=== PATIENT | female | born 1975 | race Hispanic/Latino ===

== ENCOUNTER 2017-12-27 05:53 | Inpatient (IN) | payer BC ==
[2017-12-12 14:13] VITALS: BMI 34.0
[2017-12-27] MEDS ORDERED: Bupivacaine 0.5% Inj(30mL) ONE (07:26)
[2017-12-27] MEDS ORDERED: Silver Nitrate Topical - Stick ONE (07:47)
[2017-12-27] MEDS ORDERED: Midazolam 2 MG/2 ML VIAL ONE (07:51)
[2017-12-27] MEDS ORDERED: Propofol 10 mg/ml Inj (20 ML) ONE (07:51)
[2017-12-27] MEDS ORDERED: ePHEDrine 50 mg/ml Inj ONE (07:52)
[2017-12-27] MEDS ORDERED: Rocuronium 10 mg/ml (5 ml) ONE ×3 (07:52→12:12)
[2017-12-27] MEDS ORDERED: Succinylcholine 200 mg/10 ml Inj IV ONE (07:52)
[2017-12-27] MEDS ORDERED: Lactated Ringer's 1,000 ML IV ONE ×3 (08:10→18:30)
[2017-12-27] MEDS ORDERED: Bupivacaine 0.5% 50 ML IJ ONE ×2 (08:30)
[2017-12-27] MEDS ORDERED: Vasopressin 20 Units/ml Inj ONE (09:08)
[2017-12-27] MEDS ORDERED: Vasopressin 20 Units/ml Inj IV ONE (09:15)
[2017-12-27] MEDS ORDERED: Neostigmine 1:1000 (1 mg/ml) Inj ONE ×2 (10:53→10:54)
[2017-12-27] MEDS ORDERED: Lactated Ringer's 500 ML IV ONE (11:30)
[2017-12-27] MEDS ORDERED: Methylene Blue 10 mg/mL(10ml) IV ONE (13:06)
[2017-12-27] MEDS ORDERED: Methylene Blue 10 mg/ml (1ml) Inj IV ONE (13:45)
[2017-12-27] MEDS ORDERED: Iohexol 240 200 ML ONE (14:20)
[2017-12-27] MEDS ORDERED: Sevoflurane - Inhalation Anesthetic Liq (250 ml) ONE (14:41)
[2017-12-27] MEDS ORDERED: Iohexol 240 200 ML IJ ONE (15:18)
[2017-12-27] MEDS ORDERED: HYDROmorphone 0.5 mg/0.5 ml ISec ONE (16:05)
[2017-12-27] MEDS: HYDROmorphone 0.5 mg/0.5 ml ISec IVP PRN ×4 (16:05→16:50)
--- NOTE | 2017-12-27 16:42 | RAD ---
PROCEDURE: Intraoperative Fluoroscopy. HISTORY: FLUOROSCOPY FINDINGS: Fluoroscopic assistance was provided for cystogram in retrograde study. Please refer to the operative report from DUANE Burr. Total fluoroscopic time (continuous mode) utilized during the procedure 57.5 (seconds). Total exam DLP: (mGy) 14.23
[2017-12-27] MEDS ORDERED: Lactated Ringer's 1,000 ML IV SCH (17:00)
[2017-12-27] MEDS ORDERED: Oxycodone/Acetaminophen 5/325 mg Tab PO PRN (17:01)
[2017-12-27] MEDS: ceFAZolin 2 GM in Sodium Chloride 0.9% 100 ML IVPB SCH (17:45)
[2017-12-27] MEDS ORDERED: Dexamethasone 4 mg/1 ml IVP PRN (18:49)
[2017-12-27 19:29] LABS: HEMOGLOBIN 8.8 g/dL (12.0-16.0); MEAN CELL VOLUME 70.3 fl (81.0-99.0); MEAN CORPUSCULAR HEMOGLOBIN 21.6 pg (27.0-31.0); MEAN CORPUSCULAR HGB CONC 30.7 g/dL (33.0-37.0); RBC 4.08 Mil/uL (3.80-5.20); RED CELL DISTRIBUTION WIDTH 16.4 % (11.5-14.5); WHITE BLOOD COUNT 17.8 K/uL (4.8-10.8)
[2017-12-27] MEDS: Lactated Ringer's 1,000 ML IV SCH (23:44)
[2017-12-27] MEDS: Phenol 1.4% Throat Spray MT PRN (23:49)
[2017-12-28] MEDS: ceFAZolin 2 GM in Sodium Chloride 0.9% 100 ML IVPB SCH ×2 (01:06→08:22)
[2017-12-28 05:55] LABS: HEMOGLOBIN 8.5 g/dL (12.0-16.0); MEAN CORPUSCULAR HEMOGLOBIN 21.9 pg (27.0-31.0); MEAN CORPUSCULAR HGB CONC 30.8 g/dL (33.0-37.0); RBC 3.88 Mil/uL (3.80-5.20); RED CELL DISTRIBUTION WIDTH 16.7 % (11.5-14.5); WHITE BLOOD COUNT 9.8 K/uL (4.8-10.8)
[2017-12-28] MEDS: Phenol 1.4% Throat Spray MT PRN (06:43)
[2017-12-28] MEDS: Lactated Ringer's 1,000 ML IV SCH ×2 (07:30→17:01)
--- NOTE | 2017-12-28 08:39 | OP ---
PROCEDURE DATE: 12/27/2017 PREOPERATIVE DIAGNOSES: Symptomatic fibroid uterus, menorrhagia, and anemia. POSTOPERATIVE DIAGNOSES: Symptomatic fibroid uterus, menorrhagia, anemia, pending pathology. PROCEDURE: Robotic-assisted hysterectomy, bilateral salpingectomy, bladder repair, cystoscopy, cystogram, and lysis of adhesions. SURGEON: Baldemar Nathan MD PERSONNEL INTERVIEWER: Dior Bowers MD CONSULTING SURGEONS: Karan Hansen MD for Urology and for General Surgery, Pk Zavala MD and [place] MD FLUID REPLACEMENT: Lactated Ringer's. DRAINS: Langston to gravity and Steve drain. ESTIMATED BLOOD LOSS: 200 mL. COMPLICATIONS: Bladder injury. INDICATION FOR SURGERY: A 42-year-old with severe menorrhagia secondary to symptomatic fibroid uterus. DESCRIPTION OF PROCEDURE: After informed consent was obtained and signed, the patient was brought to the operating room and placed in the supine position. Once general anesthesia was successfully induced, the patient was placed in a dorsal lithotomy position, prepped and draped in usual sterile fashion. A bivalve speculum was placed intravaginally and the cervix was grasped with single-tooth tenaculum, it was then tented forward and the cervix was then dilated in a graduated fashion. The Vcare manipulator was then deployed through the internal os and insufflated into place and then all other equipments were removed the VCare manipulator in place. Once this was completed, attention was turned to the pre-prepped abdominal area and which 2 fingerbreadths above the umbilicus, an 8-mm skin incision was made horizontally. A Veress needle was then placed and abdominal cavity was insufflated with CO2 distention medium under direct using a pressure gauge of 50 mmHg. Once this was completed, abdominal cavity was properly insufflated. The Veress needle was removed and the robotic 8-mm trocar was then placed intra-abdominally and confirmed by robotic camera and abdominal cavity was surveyed. The specimen was identified and then attention turned to placement of the remaining 4 ports, two ports on the patient's lateral left and two ports on the patient's lateral right, please note Marcaine solution was injected prior to all incisions including the Veress needle under direct visualization and 8-mm trocar was placed on the patient's left side under direct visualization of the camera. On the patient's right side, a 5-mm port as well as 8-mm port was placed under direct visualization. Once all trocars were in place, the robot was then docked. After the robot was docked, the instruments were then placed under direct visualization using Prograf monopolar on the left lateral and using accessory port and PK cautery on the patient's right. At this point in time, the was surveyed. There was anterior adhesion to omental adhesions, blocking the uterus. Pelvis was robotically reduced. Once this intraabdominal adhesion was relieved using monopolar gina and PK cauterization safely. Complete visualization of the speculum was then viewed. At this point in time, a Dilaudid and dose of Pitocin dose was then injected into the uterus. Once completed, a needle was retracted and removed, blanching of the uterus was noted at this time. Then attention turned to the patient's round ligament, which was cauterized and transected bilaterally. Attention to IP ligament was noted and since the patient was remaining to maintain ovaries on both sides, the ovarian ligament was then cauterized and transected instead. This was done bilaterally, freeing the ovary from the uterus. On the patient's left side, there was some intraabdominal adhesions from the previous that was noted for using the PK and the monopolar gina, the broad ligament was then expanded upon and dissected from the left pelvic sidewall. Once this was freed, then the round ligament was then cauterized and transected completely and then the bladder flap was creating anteriorly. Once this was completed, attention turned to the patient's right, which there was a large posterolateral fibroid approximately 8 to 9 cm in size. Once the ovary was freed, the round ligament was then cauterized and transected and a bladder flap was then created anteriorly to connect to the bladder flap on the contralateral side. The bladder was then displaced distally using the PK cautery on sweep. On the patient's left side since it was more operable, we proceed by identifying the uterine cauterizing and transecting using monopolar gina. Anteriorly, the cuff was identified and then posteriorly the cuff as well was identified and the retroperitoneum was then entered and then displaced distally away from the cuff posteriorly, dropping down the peritoneum posterior and on the left lateral side. Once this was completed, I then proceeded with performing myomectomy. At this point in time, the Prograf was removed. The tenaculums were replaced and after linear incision was made on the posterior wall of the fibroid, the tenaculum was used to secure the fibroid in place using a monopolar gina and the PK suture. The large myoma was then dissected out. Once it was completely out, the myoma was then placed in the cul-de-sac area. Attention then turned to the myoma anterior, which was largest one and likewise incision was created linearly. Tenaculum was used to grasped the myoma using monopolar gina and the PK cautery, it was dissected out of and then dissected at the base. Then, the final myoma which was on the contralateral side of the fundus was then also linear incision grasped with tenaculums and dissected out. All 3 myomas was placed on the side, this decompressed the uterus tremendously. Skeletonization then was performed on the patient's right side to exposing the uterine arteries. Once expose using PK cautery, it was cauterized and monopolar gina was transected, this carried down to the cuff line and after cuff line, then using a monopolar gina, dissected down to over the cuff, once the clean cuff was exposed and circumferential incision was created excising the entire uterus. At this point in time, Dr. Bowers then removed the uterus vaginally and then at this point in time, each myoma was passed to Dr. Bowers. The largest myoma vaginally was debulked. All specimen was sent to pathology for analysis. The vaginal area was closed with moist laparotomy sponge and at this point in time, the ovaries were evaluated. The tubes were grasping using the PK and monopolar gina. The tubes were transected. Once completed, Dr. Bowers removed the sponge and tubes were then passed through were extracted vaginally. Moist laparotomy sponge was then replaced. At this point in time, the monopolar gina were removed and was deployed and at this point in time, the suture V-Loc 12-inch was also released into the abdominal cavity. The vaginal cuff was then closed in a running locking suture. Once the cuff was completely closed, the suture was transected and removed and Dr. Bowers then extracted the needle. Copious irrigation and once completed, we proceeded with a cystoscopy. Cystoscopy was then placed to the urethra. The bladder was insufflated with normal saline . Ureteral stent was placed on the patient's right side. Upon entering, we noted there was some blood-tinged urine in the bladder was in place to check for ureter integrity. ICD-9 was then injected. At this point in time, we noted that there was a leak identified at this point in time. The patient was noted to be stable. We called an intraoperative consult with Urology. General surgery was readily available, so general surgery papers with Dr. Portillo and Dr. Hills assisting. We were awaiting for Urology to present. We then proceeded with repeat cystoscopy evaluating the bladder and once the bladder was completely evaluated and the bladder opening was identified. At this point in time, the bladder was then repaired by Dr. Zavala using 3-0 Vicryl suture and interrupted suture with 2-layer closure. Dr. Portillo will dictate his repair. Once this repair was complete, Urology was present and urologist at this point in time checked the integrity of the ureters stent, injected radioactive dye into the cystogram to evaluate the ureter and the bladder as well. This was performed by Dr. Hansen. The repair appeared to be intact and ureter appeared to be intact as well. All equipment was removed and at this point in time, Steve drain was then deployed to one of the trocar port and secured into place with suture. All other ports were closed using 3-0 Monocryl and subcuticular stitch and Dermabond glue. The patient tolerated the procedure well. Sponge, needle, and equipment counts were correct x3. Please note that there was an extended time that we were in the operating room, but delay was secondary to just waiting for the intraoperative consults to arrive, but please note that the injury was identified intraoperatively on spot, it was repaired immediately and its integrity was confirmed. The patient went to recovery room in stable condition. All sponge, needle and equipment count were correct x3 and the patient went to recovery room with IV fluid running and will be started on PETROPHYSICIST for pain management. The patient will be encouraged to maintain the Langston for approximately 10 days, and if stable, the Steve drain will be removed in the next 2 to 3 days and prophylactic antibiotics will be initiated. Baldemar Nathan MD
--- NOTE | 2017-12-28 08:46 | OP ---
INTRAOPERATIVE CONSULTATION AND OPERATIVE NOTE DATE: 12/27/[address] Baldemar Nathan for right ureteral/bladder injury. Intraoperatively, status post robotic total hysterectomy without oophorectomy. Intraoperatively during the procedure, it was noted by additional robotic surgeons Dr. Pk Zavala and also Dr. [place] that there did not appear to be an injury to the ureter near the bladder. However, there was a small bladder injury measuring about 1 cm. This injury was repaired by Dr. Zavala robotically and I performed a right retrograde pyelogram with a right ureteral stent and a postoperative cystogram. Both appeared to be relatively normal with no evidence of any extravasation. 20 mL of contrast was injected via the indwelling open-ended ureteral stent and about 60 mL of contrast was injected via the Langston catheter for a right retrograde pyelogram and a cystogram. At the end of the procedure, a Steve drain was left indwelling with the Langston catheter. Langston balloon was inflated to 10 ml. The catheter will remain for about 10 days. The patient will also get postop antibiotics for about 10 days, which might include either Ceftin, Augmentin or Levaquin to be chosen by Dr. Nathan. The right ureteral open ended stent was removed. Karan Hansen MD MTDJeffrey
--- NOTE | 2017-12-28 10:30 | CP.PCM.PN ---
Subjective - Date & Time of Evaluation Date of Evaluation: 12/28/17 Time of Evaluation: 10:28 - Subjective Subjective: SURGERY NOTE FOR DR. JEFFRIES 42F seen and examined at bedside. Patient doing well, states pain is controlled , nausea has improved. Currently tolerating diet. Denies fever, chills. Ryan catheter in place. Objective - Vital Signs/Intake and Output Vital Signs (last 24 hours): Temp Pulse Resp BP Pulse Ox 99 F 88 20 128/84 98 12/28/17 07:54 12/28/17 07:54 12/28/17 07:54 12/28/17 07:54 12/28/17 07:54 Intake and Output: 12/28/17 12/28/17 06:59 18:59 Output Total 220 Balance -220 - Medications Medications: Current Medications Heparin Sodium (Porcine) (Heparin) 5,000 units SC Q12 CARL PRN Reason: Protocol Last Admin: 12/28/17 08:28 Dose: 5,000 units Lactated Ringer's (Lactated Ringer's) 1,000 mls @ 100 mls/hr IV .Q10H [facility] Last Admin: 12/27/17 23:44 Dose: 100 mls/hr Lactated Ringer's (Lactated Ringer's) 1,000 mls @ 0 mls/hr IV .Q0M CARL PRN Reason: Per Protocol Last Admin: 12/27/17 18:22 Dose: 1,000 mls Ketorolac Tromethamine (Toradol) 30 mg IVP Q6 PRN PRN Reason: Pain, moderate (4-7) Ondansetron HCl (Zofran Inj) 4 mg IVP ONCE PRN PRN Reason: Nausea/Vomiting Last Admin: 12/27/17 18:30 Dose: 4 mg Ondansetron HCl (Zofran Inj) 4 mg IVP Q6 PRN PRN Reason: Nausea/Vomiting Last Admin: 12/28/17 08:57 Dose: 4 mg Oxycodone/Acetaminophen (Percocet 5/325 Mg Tab) 1 tab PO Q4 PRN PRN Reason: Pain, moderate (4-7) Stop: 12/30/17 17:02 Phenol/Menthol (Phenaseptic 1.4% Throat [place]) 1 spry MT Q2 PRN PRN Reason: Sore Throat Last Admin: 12/28/17 06:43 Dose: 1 spr - Labs Labs: 12/28/17 04:20 - Constitutional Appears: Non-toxic, No Acute Distress - Respiratory Exam Respiratory Exam: Clear to Ausculation Bilateral, NORMAL BREATHING PATTERN - Cardiovascular Exam Cardiovascular Exam: REGULAR RHYTHM, +S1, +S2 - GI/Abdominal Exam GI & Abdominal Exam: Soft, Tenderness (appropriately). absent: Distended, Firm , Guarding, Rigid, Rebound Additional comments: allyson drain output - serosanguinous Incisions CDI - Exam Additional comments: ryan in place - 1250cc since OR. 75cc/hr - Extremities Exam Extremities Exam: absent: Pedal Edema, Tenderness - Neurological Exam Neurological Exam: Alert, Awake - Skin Skin Exam: Dry, Intact, Normal Color, Warm Assessment and Plan - Assessment and Plan (Free Text) Assessment: 42F s/p robotic hysterectomy, bilateral salpingoopherectomy, with bladder repair POD1 Plan: DC SOLUTIONS CONSULTANT Toradol for pain Advance diet as tolerated Keep ryan catheter in. Strict Is &Os Discussed with Dr. Lucas Shen, PGY2
--- NOTE | 2017-12-28 18:07 | CP.PCM.PN ---
Subjective - Date & Time of Evaluation Date of Evaluation: 12/28/17 Time of Evaluation: 18:04 - Subjective Subjective: Patient c/o nausea and vomiting x one episode also an adverse reaction to zofran Objective - Vital Signs/Intake and Output Vital Signs (last 24 hours): Temp Pulse Resp BP Pulse Ox 98.8 F 88 20 128/84 99 12/28/17 15:45 12/28/17 15:45 12/28/17 15:45 12/28/17 15:45 12/28/17 15:45 Intake and Output: 12/28/17 12/28/17 06:59 18:59 Output Total 220 Balance -220 - Medications Medications: Current Medications Heparin Sodium (Porcine) (Heparin) 5,000 units SC Q12 CARL PRN Reason: Protocol Last Admin: 12/28/17 08:28 Dose: 5,000 units Lactated Ringer's (Lactated Ringer's) 1,000 mls @ 100 mls/hr IV .Q10H [facility] Last Admin: 12/28/17 17:01 Dose: 100 mls/hr Lactated Ringer's (Lactated Ringer's) 1,000 mls @ 0 mls/hr IV .Q0M CARL PRN Reason: Per Protocol Last Admin: 12/27/17 18:22 Dose: 1,000 mls Ketorolac Tromethamine (Toradol) 30 mg IVP Q6 PRN PRN Reason: Pain, moderate (4-7) Last Admin: 12/28/17 13:05 Dose: 30 mg Ondansetron HCl (Zofran Inj) 4 mg IVP ONCE PRN PRN Reason: Nausea/Vomiting Last Admin: 12/27/17 18:30 Dose: 4 mg Ondansetron HCl (Zofran Inj) 4 mg IVP Q6 PRN PRN Reason: Nausea/Vomiting Last Admin: 12/28/17 08:57 Dose: 4 mg Oxycodone/Acetaminophen (Percocet 5/325 Mg Tab) 1 tab PO Q4 PRN PRN Reason: Pain, moderate (4-7) Stop: 12/30/17 17:02 Phenol/Menthol (Phenaseptic 1.4% Throat [place]) 1 spry MT Q2 PRN PRN Reason: Sore Throat Last Admin: 12/28/17 06:43 Dose: 1 spr - Labs Labs: 12/28/17 04:20 - Constitutional Appears: Well - Eye Exam Pupil Exam: NORMAL ACCOMODATION - Neck Exam Neck Exam: Normal Inspection - Respiratory Exam Respiratory Exam: NORMAL BREATHING PATTERN - Cardiovascular Exam Cardiovascular Exam: REGULAR RHYTHM - GI/Abdominal Exam GI & Abdominal Exam: Soft, Tenderness, Normal Bowel Sounds - Exam Exam: NORMAL INSPECTION External exam: NORMAL EXTERNAL EXAM Additional comments: scant vaginal bleeding Steve draine 40ml urine ryan clear urine noted - Extremities Exam Extremities Exam: Normal Inspection - Neurological Exam Neurological Exam: Alert, Awake, Oriented x3 - Skin Skin Exam: Normal Color Assessment and Plan - Assessment and Plan (Free Text) Assessment: s/p Robotic Assisted Hysterectomy bilateral salpingectomy w/ bladder rent repair stable continue current care advance diet as tolerated oob to chair ambulate with business assistant d/c CIRCULATION DIRECTOR start percocert and toradal prn
[2017-12-28] MEDS ORDERED: DiphenhydrAMINE 50 mg/ml Inj IVP PRN (18:22)
[2017-12-29] MEDS: Lactated Ringer's 1,000 ML IV SCH ×2 (00:22→13:45)
[2017-12-29 05:19] VITALS: O2SAT 99
[2017-12-29 07:27] LABS: ALBUMIN 3.1 g/dL (3.5-5.0); ALT/SGPT 26 U/L (9-52); AST/SGOT 42 U/L (14-36); BLOOD UREA NITROGEN 7 mg/dl (7-17); CALCIUM 8.3 mg/dL (8.4-10.2); GFR AFRICAN-AMERICAN > 60; GFR NON-AFRICAN AMERICAN > 60
--- NOTE | 2017-12-29 07:27 | CP.PCM.PN ---
Subjective - Date & Time of Evaluation Date of Evaluation: 12/29/17 Time of Evaluation: 07:24 - Subjective Subjective: General Surgery Note for Dr. Zavala Patient seen and examined at bedside. No acute event overnight. Patient states pain is still present but controlled. Denies fever/chills or nausea/vomiting. She is tolerating full liquid diet. Patient reports passing gas but no BM. Ryan catheter with 2800 cc of urine output over 24 hrs. Allyson drain with 180 cc of output over 24 hrs. Objective - Vital Signs/Intake and Output Vital Signs (last 24 hours): Temp Pulse Resp BP Pulse Ox 97.9 F 104 H 18 125/81 99 12/29/17 05:18 12/29/17 05:18 12/29/17 05:18 12/29/17 05:18 12/29/17 05:18 Intake and Output: 12/29/17 12/29/17 06:59 18:59 Intake Total 3040 Output Total 1380 Balance 1660 - Medications Medications: Current Medications Diphenhydramine HCl (Benadryl) 50 mg IVP Q6 PRN PRN Reason: Nausea/Vomiting Heparin Sodium (Porcine) (Heparin) 5,000 units SC Q12 CARL PRN Reason: Protocol Last Admin: 12/28/17 20:57 Dose: 5,000 units Lactated Ringer's (Lactated Ringer's) 1,000 mls @ 100 mls/hr IV .Q10H [facility] Last Admin: 12/29/17 00:22 Dose: 100 mls/hr Lactated Ringer's (Lactated Ringer's) 1,000 mls @ 0 mls/hr IV .Q0M CARL PRN Reason: Per Protocol Last Admin: 12/27/17 18:22 Dose: 1,000 mls Ketorolac Tromethamine (Toradol) 30 mg IVP Q6 PRN PRN Reason: Pain, moderate (4-7) Last Admin: 12/29/17 01:34 Dose: 30 mg Ondansetron HCl (Zofran Inj) 4 mg IVP ONCE PRN PRN Reason: Nausea/Vomiting Last Admin: 12/27/17 18:30 Dose: 4 mg Ondansetron HCl (Zofran Inj) 4 mg IVP Q6 PRN PRN Reason: Nausea/Vomiting Last Admin: 12/28/17 08:57 Dose: 4 mg Oxycodone/Acetaminophen (Percocet 5/325 Mg Tab) 1 tab PO Q4 PRN PRN Reason: Pain, moderate (4-7) Stop: 12/30/17 17:02 Phenol/Menthol (Phenaseptic 1.4% Throat [place]) 1 spry MT Q2 PRN PRN Reason: Sore Throat Last Admin: 12/28/17 06:43 Dose: 1 spr - Labs Labs: 12/28/17 04:20 - Constitutional Appears: No Acute Distress - Head Exam Head Exam: ATRAUMATIC, NORMOCEPHALIC - Eye Exam Eye Exam: EOMI, Normal appearance Pupil Exam: PERRL - ENT Exam ENT Exam: Mucous Membranes Moist - Respiratory Exam Respiratory Exam: NORMAL BREATHING PATTERN - Cardiovascular Exam Cardiovascular Exam: REGULAR RHYTHM - GI/Abdominal Exam GI & Abdominal Exam: Soft, Tenderness (mild, incisional). absent: Distended, Firm, Guarding, Rigid, Rebound Additional comments: surgical sites are clean, dry and intact allyson drain in place with serosanguinous output - Exam Additional comments: ryan catheter in play with yellow urine output (200 cc in bag) - Extremities Exam Extremities Exam: Normal Capillary Refill - Back Exam Back Exam: absent: CVA tenderness (L), CVA tenderness (R) - Neurological Exam Neurological Exam: Alert, Awake, Oriented x3 - Psychiatric Exam Psychiatric exam: Normal Affect, Normal Mood - Skin Skin Exam: Dry, Intact, Normal Color, Warm Assessment and Plan - Assessment and Plan (Free Text) Assessment: 42F s/p robotic hysterectomy, bilateral salpingoopherectomy, with bladder repair POD#2 Plan: -FLD, ADAT -Toradol for pain control -Strict I's & O's -Monitor bowel function -OOB/Ambulation/Incentive Spirometry -Further recommendations as per Dr. Lucas Hawley PGY1
[2017-12-29 07:37] LABS: HEMOGLOBIN 8.5 g/dL (12.0-16.0); MEAN CELL VOLUME 70.9 fl (81.0-99.0); MEAN CORPUSCULAR HEMOGLOBIN 21.7 pg (27.0-31.0); MEAN CORPUSCULAR HGB CONC 30.6 g/dL (33.0-37.0); RBC 3.9 Mil/uL (3.80-5.20); RED CELL DISTRIBUTION WIDTH 16.4 % (11.5-14.5); WHITE BLOOD COUNT 6.4 K/uL (4.8-10.8)
[2017-12-29 08:18] VITALS: RESP 20
--- NOTE | 2017-12-29 08:57 | CP.PCM.PN ---
Subjective - Date & Time of Evaluation Date of Evaluation: 12/29/17 Time of Evaluation: 08:55 - Subjective Subjective: Patient doing well and tolerating diet and pain well controlled without complaints Objective - Vital Signs/Intake and Output Vital Signs (last 24 hours): Temp Pulse Resp BP Pulse Ox 98.0 F 96 H 20 126/82 99 12/29/17 08:17 12/29/17 08:17 12/29/17 08:17 12/29/17 08:17 12/29/17 08:17 Intake and Output: 12/29/17 12/29/17 06:59 18:59 Intake Total 3040 Output Total 1380 Balance 1660 - Medications Medications: Current Medications Diphenhydramine HCl (Benadryl) 50 mg IVP Q6 PRN PRN Reason: Nausea/Vomiting Heparin Sodium (Porcine) (Heparin) 5,000 units SC Q12 CARL PRN Reason: Protocol Last Admin: 12/28/17 20:57 Dose: 5,000 units Lactated Ringer's (Lactated Ringer's) 1,000 mls @ 100 mls/hr IV .Q10H [facility] Last Admin: 12/29/17 00:22 Dose: 100 mls/hr Lactated Ringer's (Lactated Ringer's) 1,000 mls @ 0 mls/hr IV .Q0M CARL PRN Reason: Per Protocol Last Admin: 12/27/17 18:22 Dose: 1,000 mls Ketorolac Tromethamine (Toradol) 30 mg IVP Q6 PRN PRN Reason: Pain, moderate (4-7) Last Admin: 12/29/17 01:34 Dose: 30 mg Ondansetron HCl (Zofran Inj) 4 mg IVP ONCE PRN PRN Reason: Nausea/Vomiting Last Admin: 12/27/17 18:30 Dose: 4 mg Ondansetron HCl (Zofran Inj) 4 mg IVP Q6 PRN PRN Reason: Nausea/Vomiting Last Admin: 12/28/17 08:57 Dose: 4 mg Oxycodone/Acetaminophen (Percocet 5/325 Mg Tab) 1 tab PO Q4 PRN PRN Reason: Pain, moderate (4-7) Stop: 12/30/17 17:02 Phenol/Menthol (Phenaseptic 1.4% Throat [place]) 1 spry MT Q2 PRN PRN Reason: Sore Throat Last Admin: 12/28/17 06:43 Dose: 1 spr - Labs Labs: 12/29/17 05:30 12/29/17 06:00 - Respiratory Exam Respiratory Exam: NORMAL BREATHING PATTERN - Cardiovascular Exam Cardiovascular Exam: REGULAR RHYTHM - GI/Abdominal Exam GI & Abdominal Exam: Normal Bowel Sounds Assessment and Plan - Assessment and Plan (Free Text) Assessment: Status post neurotic assisted hysterectomy Cystotomy with repair Postoperative day #2 Patient doing well Discharge depending Prescriptions for Motrin and Percocet and Colace provided Langston catheter to remain in place for 1 week Follow-up the PMD
[2017-12-29 16:00] VITALS: BP 134/84; PULSE 114; TEMP 98.9
--- NOTE | 2018-01-01 13:18 | PCM.OP ---
Operative Report - Operative Report Date of Surgery/Procedure: 12/27/17 Time of Surgery/Procedure: 14:00 Surgeon: Dr. Pk Zavala [employer] Clerk: Dr. Otto, Dr. Bowers, Dr. Hills, Dr. Espinoza Anesthesia/Sedation: general/Dr. Robbins Pre-Operative Diagnosis: Uterine fibroids and subsequent injury to the urinary bladder Post-Operative Diagnosis: urinary bladder injury Indication for Surgery: urinary bladder injury Operative Findings: injury to the urinary bladder Procedure/Operation Description: 1-right and left uretrerolysis. 2-Complex repair of the urinary bladder. Brief History: This is a 42 year old woman already brought to the operating room by Drs. Otto and Robinson when the patient underwent robotic hysterectomy for giant uterine fibroids. During the course of the operation, after the uterus was removed, a urinary leak was noted. ICG was injected and it was initally interpreted and an injury to the ureter. Intraoperative consultation was requested. Decription of the Procedure : Clarice Otto and Robinson had already initiated the robotic procedure ( separate dictsation Drs. otto and Robinson). After takong control of the robotic console the pelvic floor was examined under robotic videoscopy. The SEBASTIAN mode was initated, however, due to extnsive extravazation ICG was noted all over the pelvic floor and no single site of leak could be elucidated. Unsing blunt adn sharp technique with the aid of electrocautery the right ureter was lysed from the iliac vessles inferiorly to the level of its insertion to the urinary bladder. No obvious leak could be identitified. The left ureter was lysed in a similar, but limited fashion and no leak was idnetified. Dr. Espinoza (separate dication) then accessed the urinary bladder and ureters with stents. Methylene blue was injected and no ureteral injuries were noted. Blue dye was then injected into the urinary bladder proper and a leak could be seen in the inferior portion of the bladder just abocve the vaginal cuff repair. Initially the repair was made in a limited fashion, however, it was initially inadeqaute and the injury was more comlex than anticipated. Blue dye was injected again and the bladder still leaked. The vaginal cuff repair was then taken down and the inferior bladder was mobilized oin a more generpous fashion. Using two layers of 3-0 vicryl the bladder repair was made in two layers. This ulterior repair was tested with blue dye and was deemed adeqaute. The vaginal cuff was oversewn with 2-0 V-lock. At the end of the procedure Dr. Espinoza did an on table cystogram with dye and the repair was deemed adequate. The bladder catheter was left in-situ. The operation was then again turned over to Dr. Otto (separate dictation). Estimated Blood Loss: 30 cc Complications: none Discharge & Condition: stable
== END 2017-12-29 16:45 | disposition home or self-care (01) | DRG 742 ==
LOC: H.OPSURG 05:53 → H.TEL 18:41
PROVIDERS: ADMIT Specialist; ATTEND Specialist
PROC: 0TQB4ZZ Repair Bladder, Percutaneous Endoscopic Approach (ICD-10-PCS; 2017-12-27)
PROC: 0TJB8ZZ Inspection of Bladder, Via Natural or Artificial Opening Endoscopic (ICD-10-PCS; 2017-12-27)
PROC: BT1DZZZ Fluoroscopy of Right Kidney, Ureter and Bladder (ICD-10-PCS; 2017-12-27)
PROC: 0T768DZ Dilation of Right Ureter with Intraluminal Device, Via Natural or Artificial Opening Endoscopic (ICD-10-PCS; 2017-12-27)
PROC: 8E0W4CZ Robotic Assisted Procedure of Trunk Region, Percutaneous Endoscopic Approach (ICD-10-PCS; 2017-12-27)
PROC: 0UB94ZZ Excision of Uterus, Percutaneous Endoscopic Approach (ICD-10-PCS; principal; 2017-12-27 07:45)
PROC: 0UT9FZZ Resection of Uterus, Via Natural or Artificial Opening With Percutaneous Endoscopic Assistance (ICD-10-PCS; 2017-12-27 07:45)
PROC: 0UT7FZZ Resection of Bilateral Fallopian Tubes, Via Natural or Artificial Opening With Percutaneous Endoscopic Assistance (ICD-10-PCS; 2017-12-27 07:45)
DX: D25.9 Leiomyoma of uterus, unspecified (principal); N99.71 Accidental puncture and laceration of a genitourinary system organ or structure during a genitourinary system procedure; N92.0 Excessive and frequent menstruation with regular cycle; D64.9 Anemia, unspecified; Y83.6 Removal of other organ (partial) (total) as the cause of abnormal reaction of the patient, or of later complication, without mention of misadventure at the time of the procedure; R11.2 Nausea with vomiting, unspecified; T45.0X5A Adverse effect of antiallergic and antiemetic drugs, initial encounter